=== PATIENT | female | born 1985 | race Caucasian/White ===

== ENCOUNTER 2020-07-06 02:59 | Emergency (ER) | payer OTHER ==
[~2020-07-06 02:59] MED LIST: LODINE400 MG PO; NORCO 5-325 TA1 EACH PO; XARELTO15 MG PO
[2020-07-06 03:30] LABS: BASOPHIL 0.4 % (0-2); EOSINOPHIL 3.1 % (0-5); HCT 40.6 % (37.0-47.0); HGB 14.3 g/dl (12.5-16.0); LYMPHOCYTE 29.7 % (15-48); MCH 32.5 pg (25.0-31.0); MCHC 35.2 g/dL (32.0-36.0); MCV 92.3 fL (78.0-100.0); MONOCYTE 12.1 % (0-12); MPV 8.9 fL (6.0-9.5); NRBC 0; PLT 237 K/uL (150-400); RDW 13.2 % (11.5-14.0); WBC 12.3 K/uL (4.0-10.5)
[2020-07-06 03:37] LABS: ALBUMIN 4.1 g/dL (3.4-5.0); BILIRUBIN - TOTAL 0.4 mg/dL (0.2-1.0); BUN/CREAT RATIO (CALC) 25.4 RATIO; CREATININE 0.63 mg/dL (0.51-0.95); GLOBULIN (CALCULATION) 3.1 g/dL; POTASSIUM 3.9 mmol/L (3.5-5.1); TOTAL PROTEIN 7.2 g/dL (6.4-8.2)
[2020-07-06 05:04] LABS: BILIRUBIN NEGATIVE (NEGATIVE); BLOOD NEGATIVE Ery/uL (NEGATIVE); CLARITY CLEAR (CLEAR); COLOR YELLOW (YELLOW); GLUCOSE (U) NORMAL (NORMAL); LEUKOCYTES NEGATIVE Leu/uL (NEGATIVE); NITRITE NEGATIVE (NEGATIVE); PROTEIN NEGATIVE (NEGATIVE); SPECIFIC GRAVITY 1.015 (1.001-1.030); UROBILINOGEN 0.2 mg/dL (0.2-1.0)
[2020-07-06] MEDS ORDERED: PERCOCET 5-3251 EACH PO (05:15)
[2020-07-06] MEDS ORDERED: FLOMAX 0.4 MG0.4 MG PO (05:15)
== END 2020-07-06 05:26 | disposition home or self-care (01) ==
LOC: FER 02:59
PROVIDERS: Emergency Medicine
DX: N13.2 Hydronephrosis with renal and ureteral calculous obstruction (principal); M32.9 Systemic lupus erythematosus, unspecified; Z90.49 Acquired absence of other specified parts of digestive tract; Z79.899 Other long term (current) drug therapy
CPT/HCPCS: 36415; 80053; 81003; 82150; 83690; 85025; J1170; J1885; J2270; J2405; J7030; Q9967